=== PATIENT | female | born 1970 | race Caucasian/White ===

== ENCOUNTER 2023-08-06 13:48 | Observation (INO) | payer OTHER ==
[2023-08-06 14:24] LABS: Basophils # (A) 0.1 k/uL (0-0.2); Basophils % (A) 1 %; Eosinophils # (A) 0.2 k/uL (0-0.7); Eosinophils % (A) 2 %; HCT 40.4 % (34.0-46.0); HGB 13.4 gm/dL (11.4-16.0); Lymphocytes # (A) 1.6 k/uL (1.0-4.8); Lymphocytes % (A) 24 %; MCH 31.1 pg (25.0-35.0); MCHC 33.1 g/dL (31.0-37.0); Mean Platelet Volume 9.1; Monocytes # (A) 0.3 k/uL (0-1.0); Monocytes % (A) 4 %; Neutrophils # (A) 4.4 k/uL (1.3-7.7); Neutrophils % (A) 67 %; Platelet Count 216 k/uL (150-450); RDW 12.9 % (11.5-15.5); WBC 6.5 k/uL (3.8-10.6)
--- NOTE | 2023-08-06 14:27 | ED ---
General Adult HPI - General Chief complaint: Recheck/Abnormal Lab/Rx Stated complaint: had a stroke would like to be evaluted Time Seen by Provider: 08/06/23 13:56 Source: patient, family, RN notes reviewed, old records reviewed Mode of arrival: wheelchair Limitations: physical limitation - History of Present Illness Initial comments: 52-year-old female with recent CVA presenting with request for rehabilitation. Patient had a stroke affecting the right side of her body on Thursday which was 4 days prior. She was seen initially at [facility] and transferred to [facility] in [place]. She had stroke evaluation and treatment at that time and it was recommended that she go to rehabilitation due to right upper and lower extremity weakness and gait issues. This history is obtained from the patient and we are currently awaiting medical records. Patient states that she did not want rehabilitation and went home but has not been doing well at home and is having significant difficulty. She is requesting rehabilitation at this time. - Related Data Allergies Allergy/AdvReac Type Severity Reaction Status Date / Time duloxetine [From Cymbalta] Allergy Rash/Hives Verified 08/06/23 15:03 pregabalin [From Lyrica] Allergy Rash/Hives Verified 08/06/23 15:03 Review of Systems ROS Statement: Those systems with pertinent positive or pertinent negative responses have been documented in the HPI. ROS Other: All systems not noted in ROS Statement are negative. Past Medical History Past Medical History: GERD/Reflux, Hypertension Additional Past Medical History / Comment(s): restless leg syndrome, constipation History of Any Multi-Drug Resistant Organisms: None Reported Past Surgical History: Section, Hysterectomy Past Psychological History: No Psychological Hx Reported Smoking Status: Vaper Past Alcohol Use History: None Reported Past Drug Use History: None Reported General Exam Limitations: physical limitation General appearance: alert, in no apparent distress Head exam: Present: atraumatic, normocephalic Eye exam: Present: normal appearance, PERRL ENT exam: Present: normal exam Neck exam: Present: normal inspection. Absent: tenderness, meningismus Respiratory exam: Present: normal lung sounds bilaterally. Absent: respiratory distress, wheezes Cardiovascular Exam: Present: regular rate, normal rhythm GI/Abdominal exam: Present: soft. Absent: distended, tenderness Extremities exam: Present: normal inspection, normal capillary refill Neurological exam: Present: alert, motor sensory deficit (Right upper extremity drift, right lower extremity weakness, unable to lift off the bed. Speech is clear.) Psychiatric exam: Present: normal affect, normal mood Skin exam: Present: warm, dry, intact Course Vital Signs 08/06/23 08/06/23 13:51 14:53 Temperature 98.2 F Pulse Rate 87 78 Respiratory 20 18 Rate Blood Pressure 151/96 135/83 O2 Sat by Pulse 99 97 Oximetry - Reevaluation(s) Reevaluation #1: 08/06/23 14:26 Records from both [facility] have been requested Medical Decision Making - Medical Decision Making Was pt. sent in by a medical professional or institution (, PA, MARKETING COPYWRITER, urgent care, hospital, or usp...) When possible be specific @ -No Did you speak to anyone other than the patient for history (EMS, parent, family, police, friend...)? What history was obtained from this source @ -No Did you review nursing and triage notes (agree or disagree)? Why? @ -I reviewed and agree with nursing and triage notes Were old charts reviewed (outside hosp., previous admission, EMS record, old EKG, old radiological studies, urgent care reports/EKG's, usp records)? Report findings @ -No old charts were reviewed Differential Diagnosis (chest pain, altered mental status, abdominal pain women, abdominal pain men, vaginal bleeding, weakness, fever, dyspnea, syncope, headache, dizziness, GI bleed, back pain, seizure, CVA, palpatations, mental health, musculoskeletal)? @ -Differential CVA Ischemic stroke, hemorrhagic stroke, brain tumor, atypical migraine, Wernicke's encephalopathy, seizure, multiple sclerosis, meningitis, encephalitis, hypoglycemia, Guillain-Tran, electrolytes disturbance, myasthenia gravis.... This is not meant to be an all-inclusive list EKG interpreted by me (3pts min.). @EKG sinus rhythm rate of 78, AK interval 151, QRS duration 86, QTc [address] segment elevation. X-rays interpreted by me (1pt min.). @ -None done CT interpreted by me (1pt min.). @ -None done U/S interpreted by me (1pt. min.). @ -None done What testing was considered but not performed or refused? (CT, X-rays, U/S, labs)? Why? @ -None What meds were considered but not given or refused? Why? @ -None Did you discuss the management of the patient with other professionals (professionals i.e. , PA, MARKETING COPYWRITER, lab, RT, psych nurse, social work case manager, claim rep, teacher, trust officer, wrapper caser)? Give summary @ -Discussed with Dr. Leonard Was smoking cessation discussed for >3mins.? @ -No Was critical care preformed (if so, how long)? @ -No Were there social determinants of health that impacted care today? How? (Homelessness, low income, unemployed, alcoholism, drug addiction, transportation, low edu. Level, literacy, decrease access to med. care, retirement, rehab)? @ -No Was there de-escalation of care discussed even if they declined (Discuss DNR or withdrawal of care, Hospice)? DNR status @ -No What co-morbidities impacted this encounter? (DM, HTN, Smoking, COPD, CAD, Cancer, CVA, ARF, Chemo, Hep., AIDS, mental health diagnosis, sleep apnea, morbid obesity)? @ -Hypertension, recent CVA. Was patient admitted / discharged? Hospital course, mention meds given and route, prescriptions, significant lab abnormalities, going to OR and other pertinent info. @ -Patient will be admitted to this hospital with plan for likely placement in rehabilitation after CVA. Records from outside hospital have been requested and are pending.. Undiagnosed new problem with uncertain prognosis? @ -No Drug Therapy requiring intensive monitoring for toxicity (Heparin, Nitro, Insulin, Cardizem)? @ -No Were any procedures done? @ -No Diagnosis/symptom? @ -CVA Acute, or Chronic, or Acute on Chronic? @ -Acute Uncomplicated (without systemic symptoms) or Complicated (systemic symptoms)? @ -Default Side effects of treatment? @ -No Exacerbation, Progression, or Severe Exacerbation? @ -No Poses a threat to life or bodily function? How? (Chest pain, [place], [place], pneumonia, PE, COPD, DKA, ARF, appy, cholecystitis, CVA, Diverticulitis, Homicidal, Suicidal, threat to staff... and all critical care pts) @ -yes, CVA - Lab Data Result diagrams: 08/06/23 14:19 04/04/24 14:19 Lab Results 08/06/23 08/06/23 Range/Units 14:19 14:19 WBC 6.5 (3.8-10.6) k/uL RBC 4.30 (3.80-5.40) m/uL Hgb 13.4 (11.4-16.0) gm/dL Hct 40.4 (34.0-46.0) % MCV 94.0 (80.0-100.0) fL MCH 31.1 (25.0-35.0) pg MCHC 33.1 (31.0-37.0) g/dL RDW 12.9 (11.5-15.5) % Plt Count 216 (150-450) k/uL MPV 9.1 Neutrophils % 67 % Lymphocytes % 24 % Monocytes % 4 % Eosinophils % 2 % Basophils % 1 % Neutrophils # 4.4 (1.3-7.7) k/uL Lymphocytes # 1.6 (1.0-4.8) k/uL Monocytes # 0.3 (0-1.0) k/uL Eosinophils # 0.2 (0-0.7) k/uL Basophils # 0.1 (0-0.2) k/uL Sodium 137 (137-145) mmol/L Potassium 4.2 (3.5-5.1) mmol/L Chloride 106 (98-107) mmol/L Carbon Dioxide 20 L (22-30) mmol/L Anion Gap 11 mmol/L BUN 17 (7-17) mg/dL Creatinine 0.68 (0.52-1.04) mg/dL Est GFR (CKD-EPI)AfAm >90 (>60 ml/min/1.73 sqM) Est GFR (CKD-EPI)NonAf >90 (>60 ml/min/1.73 sqM) Glucose 120 H (74-99) mg/dL Calcium 9.6 (8.4-10.2) mg/dL Total Bilirubin 0.5 (0.2-1.3) mg/dL AST 30 (14-36) U/L ALT 26 (4-34) U/L Alkaline Phosphatase 62 (38-126) U/L Total Protein 7.7 (6.3-8.2) g/dL Albumin 4.5 (3.5-5.0) g/dL Disposition Clinical Impression: CVA (cerebral vascular accident) Disposition: ADMITTED IP TO THIS HOSP Condition: Stable Is patient prescribed a controlled substance at d/c from ED?: No Referrals: None,Stated [Primary Care Provider] - 1-2 days Time of Disposition: 14:27
[2023-08-06 14:33] LABS: ALT 26 U/L (4-34); AST 30 U/L (14-36); African American GFR (CKD) >90 (>60 ml/min/1.73 sqM); Albumin 4.5 g/dL (3.5-5.0); Alkaline Phosphatase 62 U/L (38-126); Anion Gap 11 mmol/L; Blood Urea Nitrogen 17 mg/dL (7-17); Calcium 9.6 mg/dL (8.4-10.2); Carbon Dioxide 20 mmol/L (22-30); Chloride 106 mmol/L (98-107); Glucose 120 mg/dL (74-99); Non-African American GFR(CKD) >90 (>60 ml/min/1.73 sqM); Potassium 4.2 mmol/L (3.5-5.1); Sodium 137 mmol/L (137-145); Total Bilirubin 0.5 mg/dL (0.2-1.3); Total Protein 7.7 g/dL (6.3-8.2)
[2023-08-06] MEDS ORDERED: NALOXONE 0.4 MG/ML 1 ML VIAL IV PRN (15:06)
[2023-08-06] MEDS ORDERED: ACETAMINOPHEN TAB 325 MG TAB PO PRN (15:06)
[2023-08-06] MEDS ORDERED: methocarbamoL 750 MG TAB PO PRN (15:20)
[2023-08-06] MEDS ORDERED: polyethylene glycoL 3350 17 GM POWD.PACK PO PRN (15:20)
[2023-08-06] MEDS ORDERED: BUTALB/APAP/CAFF 50-325-40MG TAB PO PRN (15:20)
--- NOTE | 2023-08-06 15:27 | P.HPIM ---
History of Present Illness H&P Date: 08/06/23 Chief Complaint: Right-sided weakness 52-year-old woman with medical history of hypertension, non-smoker, recent CVA presented for evaluation of worsening right-sided weakness. Patient does not provide much history and therefore history is supplemented by ER provider kandy duggan as well as daughter who is at bedside. For my understanding, patient had a stroke in early June and then had another stroke less than 1 week ago. At the time of the second stroke, she was recommended to go to rehab, however, requested to be discharged instead. Therefore, she went home on single antiplatelet with Plavix, however, daughter at bedside notes that patient remains significantly weak with trouble transferring to and from the bed, therefore brought the patient back to the hospital to be evaluated for rehab services. Patient denies numbness, dysphagia. She does report some memory issues, dysarthria. She denies fevers, chills, nausea, vomiting. She does report headache. She denies vision changes. She denies chest pain, palpitations, syncope, presyncope, dyspnea. In the emergency room, patient was afebrile, 151/96, heart rate 87, 99% on room air. CBC was unremarkable. Basic metabolic panel showed mild none anion gap acidosis with a bicarb of 20, otherwise unremarkable. Liver function test were unremarkable. EKG demonstrated normal sinus rhythm, normal axis, normal R wave progression, no ST-T changes concerning for ischemia. All Systems reviewed and pertinent positives and negatives noted in HPI, all other symptoms are negative Gen: in no apparent distress, resting comfortably in bed Eyes: PERRL, no scleral injection or icterus HENT: normocephalic, atraumatic, good hearing acuity, moist mucous membranes Neck: no tracheal deviation, full range of motion Resp: good air exchange, breathing comfortably with no accessory muscle use, no tactile fremitus CVS: good distal perfusion x 4, no pitting edema GI: soft, NTTP, ND, no hepatosplenomegaly : no suprapubic tenderness, no CVAT, mancilla catheter not present MSK: no clubbing, no cyanosis, no noted contractures of extremities Skin: no noted rashes, petechiae; temperature of skin is appropriate Neuro: 2 out of 5 upper and lower extremity weakness on the right, CN II-XII intact Psych: cooperative, euthymic mood, insight and judgment intact Labs and imaging as above Assessment/plan: Acute CVA -Requesting records from prior hospitalizations to assess workup -Continue patient's home Plavix 75 mg daily, add aspirin 81 mg daily -Add atorvastatin 80 mg at bedtime -Neurology consult -PT/OT -TSH, A1c, lipid panel -Monitor on telemetry Hypertension -Resume home metoprolol Patient is full code Past Medical History Past Medical History: GERD/Reflux, Hypertension Additional Past Medical History / Comment(s): restless leg syndrome, constipation History of Any Multi-Drug Resistant Organisms: None Reported Past Surgical History: Section, Hysterectomy Past Psychological History: No Psychological Hx Reported Smoking Status: Vaper Past Alcohol Use History: None Reported Past Drug Use History: None Reported Medications and Allergies Home Medications Medication Instructions Recorded Confirmed Type ALPRAZolam [Xanax] 0.25 mg PO DAILY PRN 08/06/23 08/06/23 History Acetaminophen-Codeine 300-30mg 1 tab PO Q6H PRN 08/06/23 08/06/23 History [Tylenol w/codeine #3] Amoxic-Pot Clav 875-125Mg 1 tab PO Q12HR 08/06/23 08/06/23 History [Augmentin 875-125] Butalb/APAP/Caff 50-325-40Mg 1 tab PO Q6H PRN 08/06/23 08/06/23 History [Fioricet 50-325-40] Clopidogrel [Plavix] 75 mg PO DAILY 08/06/23 08/06/23 History Famotidine [Pepcid] 20 mg PO BID 08/06/23 08/06/23 History Linaclotide [Linzess] 145 mcg PO DAILY 08/06/23 08/06/23 History Metoprolol Succinate (ER) [Toprol 100 mg PO DAILY 08/06/23 08/06/23 History Xl] Omeprazole 40 mg PO DAILY 08/06/23 08/06/23 History Pramipexole [Mirapex] 1 mg PO HS 08/06/23 08/06/23 History methocarbamoL [Robaxin-750] 750 mg PO TID PRN 08/06/23 08/06/23 History polyethylene glycoL 3350 [Miralax] 17 gm PO DAILY PRN 08/06/23 08/06/23 History Allergies Allergy/AdvReac Type Severity Reaction Status Date / Time duloxetine [From Cymbalta] Allergy Rash/Hives Verified 08/06/23 15:03 pregabalin [From Lyrica] Allergy Rash/Hives Verified 08/06/23 15:03 Physical Exam Osteopathic Statement: *. No significant issues noted on an osteopathic structural exam other than those noted in the History and Physical/Consult. Vitals: Vital Signs Temp Pulse Resp BP Pulse Ox 08/06/23 14:53 78 18 135/83 97 08/06/23 13:51 98.2 F 87 20 151/96 99 Intake and Output 08/06/23 08/06/23 08/06/23 06:59 14:59 22:59 Other: Weight 52.163 kg Results CBC & Chem 7: 08/06/23 14:19 08/06/23 14:19 Labs: Abnormal Lab Results - Last 24 Hours (Table) 08/06/23 Range/Units 14:19 Carbon Dioxide 20 L (22-30) mmol/L Glucose 120 H (74-99) mg/dL
[2023-08-06] MEDS: ASPIRIN 81 MG PO SCH (15:54)
[2023-08-06] MEDS: PRAMIPEXOLE 1 MG TAB PO SCH (16:56)
[2023-08-06] MEDS: AMOXIC-POT CLAV 875-125MG 1 EACH TAB PO SCH (20:27)
[2023-08-06] MEDS: FAMOTIDINE 20 MG TAB PO SCH (20:27)
[2023-08-06] MEDS: ATORVASTATIN 80 MG TAB PO SCH (20:27)
[2023-08-06] MEDS ORDERED: PRAMIPEXOLE 1 MG TAB PO SCH (21:00)
[2023-08-07] MEDS: PANTOPRAZOLE 40 MG TABLET PO SCH (08:54)
[2023-08-07] MEDS: CLOPIDOGREL 75 MG TAB PO SCH (08:54)
[2023-08-07] MEDS: METOPROLOL SUCCINATE (ER) 100 MG TAB.ER.24H PO SCH (08:55)
[2023-08-07] MEDS: Linaclotide [Linzess] 145 MCG Capsule PO SCH (08:55)
[2023-08-07 09:01] LABS: Basophils # (A) 0.05 X 10*3/uL (0.00-0.10); Basophils % (A) 0.8 %; Eosinophils # (A) 0.16 X 10*3/uL (0.04-0.35); Eosinophils % (A) 2.6 %; HCT 37.2 % (37.2-46.3); HGB 12.4 g/dL (12.0-15.0); Lymphocytes # (A) 2.22 X 10*3/uL (0.90-5.00); MCH 31.2 pg (27.0-32.0); MCHC 33.3 g/dL (32.0-37.0); MCV 93.5 FL (80.0-97.0); Mean Platelet Volume 11.5 FL (9.5-12.2); Monocytes # (A) 0.48 X 10*3/uL (0.20-1.00); Monocytes % (A) 7.8 %; NRBC Per 100 WBC 0 X 10*3/uL (0.00-0.01); Neutrophils # (A) 3.21 X 10*3/uL (1.80-7.70); Platelet Count 214 X 10*3/uL (140-440); RBC 3.98 X 10*6/uL (4.10-5.20); RDW 13.1 % (11.5-14.5); WBC 6.17 X 10*3/uL (4.50-10.00)
[2023-08-07 09:15] LABS: BUN/Creat Ratio 21.67 Ratio (12.00-20.00); Carbon Dioxide 20.2 mmol/L (21.6-31.8); Chloride 108 mmol/L (96-109); Chol/HDL Ratio 3.99 Ratio; Glucose 118 mg/dL (70-110); LDL Cholesterol,Calculated 111.1 mg/dL (0.0-131.0); Magnesium 1.9 mg/dL (1.5-2.4); Sodium 141 mmol/L (135-145)
--- NOTE | 2023-08-07 09:46 | P.CNNES ---
History of Present Illness Consult date: 08/06/23 Requesting physician: Charly Acosta Reason for Consult: CVA History of Present Illness: Patient is a 52-year-old right-handed female with history of hypertension, ex tobacco use, with recent possible CVA came to the hospital today at 1:48 PM with worsening right-sided weakness. Patient's daughter was also present in ER at this time and also provided with a history. Patient works at [employer] in [employer] [facility]. She had some strokelike symptoms including right- sided numbness, speech and memory problems, and then she blacked out, while she was working in June 2023. She was taken to ER inside the hospital, where she received TNK. Stroke was suspected. However the next day patient signed out AGAINST MEDICAL ADVICE. However shortly after she presented again to [facility] where she stayed for a day and was transferred to [employer] where she stayed for 3 days. She was discharged on aspirin and Plavix. 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 She was taken by ambulance to [facility] from where she was transferred to [employer] in [place]. Patient underwent testing as mentioned below, which came back negative. Patient was recommended to go to rehab, but patient declined therefore was discharged home and she got home yesterday evening. At home, she was trying to get into shower but was having difficulty getting up, more care was needed and patient's daughter could not handle. Patient was also very tired, her mood was changing drastically, therefore she brought her to [facility], so she can be transferred to the rehab facility. Vital signs on arrival blood pressure 151/96, pulse 87 temperature 98.2. Blood test shows normal CBC, normal CHEM 20, EKG shows sinus rhythm. Patient has history of hypertension, but no diabetes. She is smoked 1 pack/day from age 17 until she quit 2 years ago at age 49. (32 pack years) no history of tobacco or alcohol use. Patient was not taking any blood thinners prior to her possible stroke in June 2023. Patient's daughter has noticed that patient's mood has changed significantly after her stroke. She is very tired. Patient at present is complaining of headache 4-5/10, involving the right occipital region. Review of outside records: X-ray of the pentagram showed evidence of significant dental decay involving maxillary teeth bilaterally chest x-ray showed no acute process Reviewed notes from [facility]. Patient was seen by neurologist for right-sided weakness, speech/language deficit and altered responsiveness, on 08/04/2023. His final impression was patient has anxiety. The patient has developed several neurological symptoms. Her clinical presentation does not suggest this being in any organic brain disease issue. Most likely it was a nonorganic/behavioral event. She is due to get MRI of the brain. Addendum to the report included review of her MRI of the brain, did not show any structural abnormality. Therefore from neurologic standpoint there is no further recommendation. In the neurology consultation note, it was reported patient had couple of previous visits with subjective complaints of right-sided weakness without any objective evidence at that time. At present she is having dental problem and has not been able to get care for her dental abscess. She was not feeling great, she was just resting on the couch and suddenly felt something strange that she could not take a breath. Her daughter felt patient was having some trouble speaking or expressing herself in the right arm was numb. Then she became unresponsive, eyes were closed and not talking and that is when camera control operator were called. It was reported in his note, that patient was not moving her right arm on command but earlier apparently she was using right arm to feed herself. Patient had a normal echo in the past with normal ejection fraction. Patient was discharged with diagnosis of CVA, cerebral infarction unspecified, stroke like symptoms. Patient had small tonsillar abscess 9 x 13 mm in size. ID recommended antibiotic for dental abscess which will cover possible abscess as well. Recommending ENT follow-up. Patient was discharged on aspirin and Plavix. Review of Systems Constitutional: Denies chills, Denies fever Eyes: denies blurred vision, denies diplopia, denies pain, denies loss of vision Ears: deny: decreased hearing, ear discharge Ears, nose, mouth and throat: Reports headache, Reports sore throat, Denies nasal congestion, Denies nasal discharge, Denies vertigo Cardiovascular: Reports chest pain, Reports lightheadedness, Reports shortness of breath Respiratory: Denies cough, Denies excessive sputum Gastrointestinal: Denies abdominal pain, Denies diarrhea, Denies nausea, Denies vomiting Genitourinary: Reports urinary frequency, Denies dysuria, Denies hematuria, Denies urge incontinence Musculoskeletal: Denies low back pain, Denies myalgias, Denies neck pain Integumentary: Denies pruritus, Denies rash Neurological: Reports as per HPI Psychiatric: Reports irritability, Reports mood swings, Denies anxiety, Denies anxiety attacks, Denies depression Endocrine: Reports fatigue Hematologic/Lymphatic: Reports easy bruising, Denies easy bleeding Past Medical History Past Medical History: GERD/Reflux, Hypertension Additional Past Medical History / Comment(s): restless leg syndrome, constipation History of Any Multi-Drug Resistant Organisms: None Reported Past Surgical History: Section, Hysterectomy Past Psychological History: No Psychological Hx Reported Smoking Status: Vaper Past Alcohol Use History: None Reported Past Drug Use History: None Reported Medications and Allergies Home Medications Medication Instructions Recorded Confirmed Type ALPRAZolam [Xanax] 0.25 mg PO DAILY PRN 08/06/23 08/06/23 History Acetaminophen-Codeine 300-30mg 1 tab PO Q6H PRN 08/06/23 08/06/23 History [Tylenol w/codeine #3] Amoxic-Pot Clav 875-125Mg 1 tab PO Q12HR 08/06/23 08/06/23 History [Augmentin 875-125] Butalb/APAP/Caff 50-325-40Mg 1 tab PO Q6H PRN 08/06/23 08/06/23 History [Fioricet 50-325-40] Clopidogrel [Plavix] 75 mg PO DAILY 08/06/23 08/06/23 History Famotidine [Pepcid] 20 mg PO BID 08/06/23 08/06/23 History Linaclotide [Linzess] 145 mcg PO DAILY 08/06/23 08/06/23 History Metoprolol Succinate (ER) [Toprol 100 mg PO DAILY 08/06/23 08/06/23 History Xl] Omeprazole 40 mg PO DAILY 08/06/23 08/06/23 History Pramipexole [Mirapex] 1 mg PO HS 08/06/23 08/06/23 History methocarbamoL [Robaxin-750] 750 mg PO TID PRN 08/06/23 08/06/23 History polyethylene glycoL 3350 [Miralax] 17 gm PO DAILY PRN 08/06/23 08/06/23 History Allergies Allergy/AdvReac Type Severity Reaction Status Date / Time duloxetine [From Cymbalta] Allergy Rash/Hives Verified 08/06/23 15:03 pregabalin [From Lyrica] Allergy Rash/Hives Verified 08/06/23 15:03 Physical Examination - Vital Signs Vital Signs: Vital Signs Temp Pulse Resp BP Pulse Ox 08/06/23 17:00 92 18 127/94 98 08/06/23 16:00 90 18 101/67 97 08/06/23 14:53 78 18 135/83 97 08/06/23 13:51 98.2 F 87 20 151/96 99 Intake and Output 08/06/23 08/06/23 08/06/23 06:59 14:59 22:59 Other: Weight 52.163 kg Patient is a middle aged female, in no acute distress. She appears to have a very flat affect. Patient is alert awake oriented to time place and person. Speech and language functions are normal. Patient can name and repeat very well. No aphasia. Patient appears to be talking with some atypical dysarthria. Patient is able to read but trying to read slowly, selectively. Comprehension is intact. Her attention, concentration is slightly impaired and fund of knowledge is adequate. On cranial nerve examination, pupils are equal, round and reacting to light, visual marquis are full on confrontation, with no neglect on double simultaneous stimulation. Extraocular muscles are intact with no nystagmus. Face is symmetric, tongue protrudes to the midline. Palatal elevation and sensation normal, hearing and shoulder shrug normal, facial sensation decreased on the right. On muscle strength testing, there is no pronator drift and the strength is showing some giveaway weakness on the right. 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 Deep tendon reflexes are symmetric biceps 3, brachioradialis 3, knees 3, ankles 2+ and plantar is flat on the right and downgoing on the left. Sensory to light touch and temperature is decreased in the right side of the body including face arm and leg. Cerebellar function showed no ataxia for [id number] testing on either side. No dysdiadochokinesia. No ataxia for [id number] testing with the left leg, patient not able to perform with the right leg for some reason. Tone and bulk of muscles normal. Gait deferred.. On general examination, there is no carotid bruit or murmur, S1-S2 audible. Chest is clear on consultation. Abdomen is soft nontender. No organomegaly, bowel sounds present. Peripheral pulses are present. No peripheral edema. Results - Laboratory Findings CBC and BMP: 08/07/23 06:16 08/07/23 06:16 Abnormal Lab Findings: Abnormal Labs 08/06/23 14:19 Carbon Dioxide 20 L Glucose 120 H Assessment and Plan Assessment: * Right-sided numbness, weakness (with some giveaway component) and some speech impediment. Patient's MRI of the brain and CT perfusion negative for any acute stroke. Rule out CVA versus conversion disorder. * Hypertension * Dental abscess/tonsillar abscess * Ex tobacco use Plan: Patient already had workup performed at [facility] in [place] as mentioned below. CTA head and neck 08/03/2023 showed: Normal CTA of the carotid and vertebral arteries bilaterally with no dissection, stenosis or occlusion. Distalmost right vertebral artery has a tiny caliber although it remains patent and similar in comparison. No large vessel intracranial arterial occlusion. Small right tonsillar abscess. There also appears to be small fluid collection in the soft tissue of the posterior wall of the nasopharynx. Opacified right mastoid air cells appear slightly improved compared to 06/28/2023. CT perfusion 08/03/2023 revealed no large core infarct or penumbra. CT head 08/03/2023 revealed opacified right mastoid air cells again seen. No acute intracranial process. MRI of the brain with and without contrast performed 08/04/2023 revealed negative/nonspecific findings. Fluid signal is seen filling the bilateral mastoid air cells and perhaps portion of the right middle ear. It was reported in the neurology note, the patient had echo performed in June 2023 admission which was normal. Fasting a.m. lipid panel Hemoglobin A1c B12, folate. Check EEG. Recommend ENT consultation for tonsillar abscess, opacification of the right mastoid air cells If the mood issues persist, may need psychiatry consultation. Optimize control of blood pressure. Continue aspirin 81 mg and Plavix 75 mg daily. Neuro checks every 2 hours Telemetry monitoring rule out any arrhythmia PT, OT, speech therapy Patient may be a candidate for inpatient rehabilitation. DVT prophylaxis: Heparin 5000 units subcu every 8 hours Neurology will continue to follow. Thank you for the consult.
[2023-08-07] MEDS: Acetaminophen-Codeine 300-30mg TAB PO PRN (11:20)
[2023-08-07] MEDS: CYANOCOBALAMIN 1,000 MCG/ML 1 ML VIAL IM SCH (11:21)
--- NOTE | 2023-08-07 12:45 | EEG ---
ELECTROENCEPHALOGRAM REPORT PREAMBLE: This is a 52-year-old female with some stroke-like symptoms, some syncope. This study is performed to evaluate for any epileptiform activity. EEG FINDINGS: This is a 21-channel digital EEG recorded with video component, utilizing 10/20 international system with referential and bipolar montages. Background consists of well-developed, moderately well-regulated with mixed frequencies of 7 hertz theta, intermixed with some 8 hertz alpha activity seen in bihemispheric region. Background is posterior dominant and reactive to eye opening and closing. Photic driving response was not seen. Some intermittent bitemporal dysrhythmic theta slowing was seen, left more than right. Rare left temporal sharp appearing waves were seen, which were not consistent in morphology. Drowsiness was seen with appearance of bilaterally symmetric theta frequency rhythm. Deeper stages of sleep were not seen. No electrographic seizure was recorded. IMPRESSION: 1. Abnormal EEG due to minimal background slowing, suggestive of mild encephalopathy. 2. Presence of intermittent bitemporal dysrhythmic slowing suggestive of focal cortical neuronal dysfunction. Sporadic left temporal sharp appearing waves were seen, which may suggest underlying cortical irritability. Clinical correlation strongly recommended. Suggest prolonged EEG for further evaluation if clinically indicated. MMODL / IJN: [id number] /
[2023-08-07] MEDS: ALPRAZolam 0.25 MG TAB PO PRN (14:15)
--- NOTE | 2023-08-07 16:15 | P.DS ---
Providers Date of admission: 08/06/23 15:07 Expected date of discharge: 08/07/23 Attending physician: Trevor Leonard MD Consults: 08/06/23 15:06 Consult Physician Routine Consulting Provider: Taylor Guillermo Consult Reason/Comments: CVA Do you want consulting provider notified?: Yes Primary care physician: Stated None Hospital Course: Right Sided weakness Hypertension Hospital Course: 52-year-old woman with medical history of hypertension, non-smoker, recent CVA presented for evaluation of worsening right-sided weakness. In the emergency room, patient was afebrile, 151/96, heart rate 87, 99% on room air. CBC was unremarkable. Basic metabolic panel showed mild none anion gap acidosis with a bicarb of 20, otherwise unremarkable. Liver function test were unremarkable. EKG demonstrated normal sinus rhythm, normal axis, normal R wave progression, no ST-T changes concerning for ischemia. Pt seen and cleared for d/c by neurology. 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 Pt was advised to undergo 2.5hr EEG as outpatient following rehab. I spent 34 minutes coordinating this discharge on 08/06 Gen: in no apparent distress, resting comfortably in bed Eyes: PERRL, no scleral injection or icterus HENT: normocephalic, atraumatic, good hearing acuity, moist mucous membranes Neck: no tracheal deviation, full range of motion Resp: good air exchange, breathing comfortably with no accessory muscle use, no tactile fremitus CVS: good distal perfusion x 4, no pitting edema GI: soft, NTTP, ND, no hepatosplenomegaly : no suprapubic tenderness, no CVAT, mancilla catheter not present MSK: no clubbing, no cyanosis, no noted contractures of extremities Skin: no noted rashes, petechiae; temperature of skin is appropriate Neuro: 2 out of 5 upper and lower extremity weakness on the right, CN II-XII intact Psych: cooperative, euthymic mood, insight and judgment intact Patient Condition at Discharge: Good Plan - Discharge Summary New Discharge Prescriptions: New Atorvastatin [Lipitor] 80 mg PO HS tab Aspirin 81 mg PO DAILY tab Acetaminophen Tab [Tylenol] 650 mg PO Q6HR PRN tab PRN Reason: Mild Pain Or Fever > 100.5 Continue Clopidogrel [Plavix] 75 mg PO DAILY Famotidine [Pepcid] 20 mg PO BID Amoxic-Pot Clav 875-125Mg [Augmentin 875-125] 1 tab PO Q12HR methocarbamoL [Robaxin-750] 750 mg PO TID PRN PRN Reason: Muscle Pain Omeprazole 40 mg PO DAILY ALPRAZolam [Xanax] 0.25 mg PO DAILY PRN PRN Reason: Anxiety Pramipexole [Mirapex] 1 mg PO HS Metoprolol Succinate (ER) [Toprol XL] 100 mg PO DAILY Linaclotide [Linzess] 145 mcg PO DAILY Butalb/APAP/Caff 50-325-40Mg [Fioricet 50-325-40] 1 tab PO Q6H PRN PRN Reason: Migraine Headache Acetaminophen-Codeine 300-30mg [Tylenol w/codeine #3] 1 tab PO Q6H PRN PRN Reason: Pain polyethylene glycoL 3350 [Miralax] 17 gm PO DAILY PRN PRN Reason: Constipation Discharge Medication List ALPRAZolam [Xanax] 0.25 mg PO DAILY PRN 08/06/23 [History] Acetaminophen-Codeine 300-30mg [Tylenol w/codeine #3] 1 tab PO Q6H PRN 08/06/23 [History] Amoxic-Pot Clav 875-125Mg [Augmentin 875-125] 1 tab PO Q12HR 08/06/23 [History] Butalb/APAP/Caff 50-325-40Mg [Fioricet 50-325-40] 1 tab PO Q6H PRN 08/06/23 [History] Clopidogrel [Plavix] 75 mg PO DAILY 08/06/23 [History] Famotidine [Pepcid] 20 mg PO BID 08/06/23 [History] Linaclotide [Linzess] 145 mcg PO DAILY 08/06/23 [History] Metoprolol Succinate (ER) [Toprol XL] 100 mg PO DAILY 08/06/23 [History] Omeprazole 40 mg PO DAILY 08/06/23 [History] Pramipexole [Mirapex] 1 mg PO HS 08/06/23 [History] methocarbamoL [Robaxin-750] 750 mg PO TID PRN 08/06/23 [History] polyethylene glycoL 3350 [Miralax] 17 gm PO DAILY PRN 08/06/23 [History] Acetaminophen Tab [Tylenol] 650 mg PO Q6HR PRN tab 08/07/23 [Rx] Aspirin 81 mg PO DAILY tab 08/07/23 [Rx] Atorvastatin [Lipitor] 80 mg PO HS tab 08/07/23 [Rx] Follow up Appointment(s)/Referral(s): None,Stated [Primary Care Provider] - 1-2 days Activity/Diet/Wound Care/Special Instructions: Pt needs 2.5hr EEG outpatient Discharge Disposition: TRANSFER TO SNF/ECF
--- NOTE | 2023-08-08 09:17 | P.PN ---
Subjective Progress Note Date: 08/07/23 Patient was seen for a follow-up. Patient's daughter was also present. Patient is much more alert and awake, interactive. She feels better. Patient states that 6 years ago she had seizures, but was felt to be related to medication side effects, which she believes was Cymbalta and Lyrica. Objective - Vital Signs Vital signs: Vital Signs Temp 97.4 F L 08/07/23 14:25 Pulse 72 08/07/23 14:25 Resp 17 08/07/23 14:25 BP 122/77 08/07/23 14:25 Pulse Ox 97 08/07/23 14:25 FiO2 Intake & Output 08/06/23 08/07/23 08/07/23 18:59 06:59 18:59 Intake Total 590 Balance 590 Weight 52.163 kg 52.163 kg 68.2 kg Intake: Oral 590 Other: # Voids 0 - Exam Patient's mental status, speech and language functions are normal. Her speech is much improved. On cranial nerve examination pupils are round and reacting, visual marquis are full, face is symmetric. On muscle strength testing, strength is normal on the left side including arm and leg. On the right side, her right upper extremity is diffusely 4+5-, right ankle dorsiflexion 5-4+, hip flexion 5- No ataxia for [id number] testing. Sensory touch is equal with no neglect. - Labs CBC & Chem 7: 08/07/23 06:16 08/07/23 06:16 Labs: Abnormal Lab Results - Last 24 Hours (Table) 08/07/23 08/07/23 Range/Units 06:16 06:16 RBC 3.98 L (4.10-5.20) X 10*6/uL Immature Gran # 0.05 H (0.00-0.04) X 10*3/uL Carbon Dioxide 20.2 L (21.6-31.8) mmol/L Anion Gap 12.80 H (4.00-12.00) mmol/L BUN/Creatinine Ratio 21.67 H (12.00-20.00) Ratio Glucose 118 H (70-110) mg/dL Assessment and Plan Assessment: * Right-sided numbness, weakness (with some giveaway component) and some speech impediment. Patient's MRI of the brain and CT perfusion negative for any acute stroke. Rule out CVA versus conversion disorder. * Hypertension * Dental abscess/tonsillar abscess * Ex tobacco use Plan: Patient already had workup performed at [facility] in [place] as mentioned below. CTA head and neck 08/03/2023 showed: Normal CTA of the carotid and vertebral arteries bilaterally with no dissection, stenosis or occlusion. Distalmost right vertebral artery has a tiny caliber although it remains patent and similar in comparison. No large vessel intracranial arterial occlusion. Small right tonsillar abscess. There also appears to be small fluid collection in the soft tissue of the posterior wall of the nasopharynx. Opacified right mastoid air cells appear slightly improved compared to 06/28/2023. CT perfusion 08/03/2023 revealed no large core infarct or penumbra. CT head 08/03/2023 revealed opacified right mastoid air cells again seen. No acute intracranial process. MRI of the brain with and without contrast performed 08/04/2023 revealed negative/nonspecific findings. Fluid signal is seen filling the bilateral mastoid air cells and perhaps portion of the right middle ear. Patient is on Augmentin. It was reported in the neurology note, the patient had echo performed in June 2023 admission which was normal. Fasting a.m. lipid panel cholesterol 184, LDL 111, HDL 46, triglycerides 134. Agree with starting Lipitor 80 mg daily. Hemoglobin A1c 5.6 normal B12 252, folate 9.8, TSH normal 1.40 EEG was performed, which was abnormal due to minimal background slowing, suggestive of mild encephalopathy. Presence of intermittent bitemporal dysrhythmic slowing, suggestive of focal cortical neuronal dysfunction. Sporadic left temporal sharp-appearing waves were seen, which may suggest underlying cortical irritability. Clinical correlation is strongly recommended. Suggest prolonged, sleep deprived EEG for further evaluation. This can be performed as an outpatient. If for any reason patient ends up staying until Thursday, then can be performed in patient. Patient is clear for discharge to rehab facility. Optimize control of blood pressure. Continue aspirin 81 mg and Plavix 75 mg daily. Neuro checks every 2 hours Telemetry monitoring rule out any arrhythmia PT, OT, speech therapy Patient may be a candidate for inpatient rehabilitation. DVT prophylaxis: Heparin 5000 units subcu every 8 hours Recommend patient follow up with neurologist outpatient. Referral placed in discharge instructions.
--- NOTE | 2023-08-08 16:04 | P.PN ---
Subjective Progress Note Date: 08/08/23 No new complaints today. Pending insurance auth. Gen: in no apparent distress, resting comfortably in bed Eyes: PERRL, no scleral injection or icterus HENT: normocephalic, atraumatic, good hearing acuity, moist mucous membranes Neck: no tracheal deviation, full range of motion Resp: good air exchange, breathing comfortably with no accessory muscle use, no tactile fremitus CVS: good distal perfusion x 4, no pitting edema GI: soft, NTTP, ND, no hepatosplenomegaly : no suprapubic tenderness, no CVAT, mancilla catheter not present MSK: no clubbing, no cyanosis, no noted contractures of extremities Skin: no noted rashes, petechiae; temperature of skin is appropriate Neuro: 2 out of 5 upper and lower extremity weakness on the right, CN II-XII intact Psych: cooperative, euthymic mood, insight and judgment intact Hospital Course: 52-year-old woman with medical history of hypertension, non-smoker, recent CVA presented for evaluation of worsening right-sided weakness. In the emergency room, patient was afebrile, 151/96, heart rate 87, 99% on room air. CBC was unremarkable. Basic metabolic panel showed mild none anion gap acidosis with a bicarb of 20, otherwise unremarkable. Liver function test were unremarkable. EKG demonstrated normal sinus rhythm, normal axis, normal R wave progression, no ST-T changes concerning for ischemia. Assessment/plan: Right sided weakness -Requesting records from prior hospitalizations to assess workup -Continue patient's home Plavix 75 mg daily, add aspirin 81 mg daily -Add atorvastatin 80 mg at bedtime -Neurology consult -PT/OT -TSH, A1c, lipid panel -Monitor on telemetry Hypertension -Resume home metoprolol Patient is full code Objective - Vital Signs Vital signs: Vital Signs Temp 97.9 F 08/08/23 12:36 Pulse 65 08/08/23 12:36 Resp 16 08/08/23 12:36 BP 122/78 08/08/23 12:36 Pulse Ox 96 08/08/23 12:36 FiO2 Intake & Output 08/07/23 08/08/23 08/08/23 18:59 06:59 18:59 Intake Total 240 1180 Balance 240 1180 Weight 68.2 kg Intake: Oral 240 1180 Other: # Voids 2 - Labs CBC & Chem 7: 08/07/23 06:16 08/07/23 06:16
[2023-08-08 21:16] VITALS: BP 123/77; PULSE 81; RESP 20; TEMP 97.6
--- NOTE | 2023-08-09 18:42 | P.DS ---
Providers Date of admission: 08/06/23 15:07 Expected date of discharge: 08/09/23 Attending physician: Trevor Leonard MD Consults: 08/06/23 15:06 Consult Physician Routine Consulting Provider: Taylor Guillermo Consult Reason/Comments: CVA Do you want consulting provider notified?: Yes Primary care physician: Stated None Hospital Course: Right Sided weakness Hypertension Hospital Course: 52-year-old woman with medical history of hypertension, non-smoker, recent CVA presented for evaluation of worsening right-sided weakness. In the emergency room, patient was afebrile, 151/96, heart rate 87, 99% on room air. CBC was unremarkable. Basic metabolic panel showed mild none anion gap acidosis with a bicarb of 20, otherwise unremarkable. Liver function test were unremarkable. EKG demonstrated normal sinus rhythm, normal axis, normal R wave progression, no ST-T changes concerning for ischemia. Pt seen and cleared for d/c by neurology. 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 Pt was advised to undergo 2.5hr EEG as outpatient following rehab. Pt's d/c was delayed due to pending insurance auth. On 08/08 overnight, patient left AMA. Patient Condition at Discharge: Undetermined Plan - Discharge Summary New Discharge Prescriptions: New Atorvastatin [Lipitor] 80 mg PO HS tab Aspirin 81 mg PO DAILY tab Acetaminophen Tab [Tylenol] 650 mg PO Q6HR PRN tab PRN Reason: Mild Pain Or Fever > 100.5 Continue Clopidogrel [Plavix] 75 mg PO DAILY Famotidine [Pepcid] 20 mg PO BID Amoxic-Pot Clav 875-125Mg [Augmentin 875-125] 1 tab PO Q12HR methocarbamoL [Robaxin-750] 750 mg PO TID PRN PRN Reason: Muscle Pain Omeprazole 40 mg PO DAILY ALPRAZolam [Xanax] 0.25 mg PO DAILY PRN PRN Reason: Anxiety Pramipexole [Mirapex] 1 mg PO HS Metoprolol Succinate (ER) [Toprol XL] 100 mg PO DAILY Linaclotide [Linzess] 145 mcg PO DAILY Butalb/APAP/Caff 50-325-40Mg [Fioricet 50-325-40] 1 tab PO Q6H PRN PRN Reason: Migraine Headache Acetaminophen-Codeine 300-30mg [Tylenol w/codeine #3] 1 tab PO Q6H PRN PRN Reason: Pain polyethylene glycoL 3350 [Miralax] 17 gm PO DAILY PRN PRN Reason: Constipation Discharge Medication List ALPRAZolam [Xanax] 0.25 mg PO DAILY PRN 08/06/23 [History] Acetaminophen-Codeine 300-30mg [Tylenol w/codeine #3] 1 tab PO Q6H PRN 08/06/23 [History] Amoxic-Pot Clav 875-125Mg [Augmentin 875-125] 1 tab PO Q12HR 08/06/23 [History] Butalb/APAP/Caff 50-325-40Mg [Fioricet 50-325-40] 1 tab PO Q6H PRN 08/06/23 [History] Clopidogrel [Plavix] 75 mg PO DAILY 08/06/23 [History] Famotidine [Pepcid] 20 mg PO BID 08/06/23 [History] Linaclotide [Linzess] 145 mcg PO DAILY 08/06/23 [History] Metoprolol Succinate (ER) [Toprol XL] 100 mg PO DAILY 08/06/23 [History] Omeprazole 40 mg PO DAILY 08/06/23 [History] Pramipexole [Mirapex] 1 mg PO HS 08/06/23 [History] methocarbamoL [Robaxin-750] 750 mg PO TID PRN 08/06/23 [History] polyethylene glycoL 3350 [Miralax] 17 gm PO DAILY PRN 08/06/23 [History] Acetaminophen Tab [Tylenol] 650 mg PO Q6HR PRN tab 08/07/23 [Rx] Aspirin 81 mg PO DAILY tab 08/07/23 [Rx] Atorvastatin [Lipitor] 80 mg PO HS tab 08/07/23 [Rx] Follow up Appointment(s)/Referral(s): Torin Briones MD [Medical Doctor] - 1 Week (Follow up right sided weakness) None,Stated [Primary Care Provider] - 1-2 days Activity/Diet/Wound Care/Special Instructions: Pt needs 2.5hr EEG outpatient Discharge Disposition: LEFT AGAINST MEDICAL ADVICE
== END 2023-08-08 20:29 | disposition left against medical advice (07) ==
LOC: EC 13:48 → 6NMEDSUR 15:07 → 5NMEDONC 19:38
PROVIDERS: ADMIT Student in an Organized Health Care Education/Training Program; ATTEND Student in an Organized Health Care Education/Training Program
DX: I10 Essential (primary) hypertension (principal); K02.9 Dental caries, unspecified; F41.9 Anxiety disorder, unspecified; K21.9 Gastro-esophageal reflux disease without esophagitis; G25.81 Restless legs syndrome; R47.1 Dysarthria and anarthria; R47.9 Unspecified speech disturbances; R20.0 Anesthesia of skin; J36 Peritonsillar abscess; K04.7 Periapical abscess without sinus; Z86.73 Personal history of transient ischemic attack (TIA), and cerebral infarction without residual deficits; Z79.899 Other long term (current) drug therapy; Z79.02 Long term (current) use of antithrombotics/antiplatelets; Z88.8 Allergy status to other drugs, medicaments and biological substances; Z87.891 Personal history of nicotine dependence; Z53.29 Procedure and treatment not carried out because of patient's decision for other reasons
CPT/HCPCS: 99285; 36415; 95816; 93005; 97162; 97166; 80061; 80053; 80048; 84443; 82607; 82746; 83735; 85025 ×2; 83036; G0378 ×4; J3420 ×2

== ENCOUNTER → 2023-08-20 | Outpatient (CLI) | payer OTHER | LOC: NEUROMAIN 07:38 | PROVIDERS: ATTEND Psychiatry & Neurology Neurology | DX: R55 Syncope and collapse (principal); Z88.8 Allergy status to other drugs, medicaments and biological substances; Z91.09 Other allergy status, other than to drugs and biological substances; Z87.891 Personal history of nicotine dependence | CPT/HCPCS: 95813 ==